=== PATIENT | female | born 1985 | race Caucasian/White ===

== ENCOUNTER → 2019-12-06 | Outpatient (CLI) | payer OTHER | END | disposition home or self-care (01) | LOC: STAR 11:23 | PROVIDERS: ATTEND Obstetrics & Gynecology | DX: Z01.818 Encounter for other preprocedural examination (principal); Z11.59 Encounter for screening for other viral diseases | CPT/HCPCS: 36415; 87635 ==

== ENCOUNTER 2019-12-11 00:47 | Inpatient (IN) | payer OTHER ==
[~2019-12-11] VITALS: Ht 162.6 cm; Wt 74.5 kg
[2019-12-11] MEDS ORDERED: LACTATED RINGERS 1,000 ML IV SCH (07:34)
[2019-12-11 07:47] VITALS: BP 113/66
[2019-12-11] MEDS ORDERED: METOCLOPRAMIDE 5 MG/ML, 2ML IV ONE (08:00)
[2019-12-11] MEDS ORDERED: SODIUM CITRATE/CITRIC ACID 30 ML UDC PO ONE (08:00)
[2019-12-11] MEDS ORDERED: LACTATED RINGERS 1,000 ML IVBOLUS ONE (08:00)
[2019-12-11 08:02] LABS: BASOPHILS # (AUTO) 0.01 x10^3/uL (0-0.1); BASOPHILS % (AUTO) 0 % (0-1); EOSINOPHILS # (AUTO) 0.04 x10^3/uL (0-0.4); EOSINOPHILS % (AUTO) 1 % (1-7); LYMPHOCYTES # (AUTO) 1.12 x10^3/uL (1-3.4); LYMPHOCYTES % (AUTO) 12 % (22-44); MD NO; MEAN CORPUSCULAR HEMOGLOBIN 30.7 pg (27.0-34.8); MEAN CORPUSCULAR HGB CONC 33.6 g/dL (32.4-35.8); MEAN CORPUSCULAR VOLUME 91.3 fL (80-100); MEAN PLATELET VOLUME 8.4 fL (7.4-10.4); MONOCYTES # (AUTO) 0.68 x10^3/uL (0.2-0.8); MONOCYTES % (AUTO) 8 % (2-9); NEUTROPHILS # (AUTO) 7.16 x10^3/uL (1.8-6.8); NEUTROPHILS % (AUTO) 79 % (42-75); PLATELET COUNT 213 x10^3/uL (130-400); RED BLOOD COUNT 3.83 x10^6/uL (3.82-5.3); RED CELL DISTRIBUTION WIDTH 17.7 % (9.6-15.2)
[2019-12-11] MEDS ORDERED: NEWBORN KIT ONE (08:12)
[2019-12-11] MEDS ORDERED: OXYTOCIN 30U/ 0.9% NaCL 500ML 500 ML ONE (08:12)
[2019-12-11] MEDS ORDERED: METOCLOPRAMIDE 5 MG/ML, 2ML ONE (08:12)
[2019-12-11] MEDS ORDERED: morphine SULFATE/PF 0.5 MG/ML, 10ML ONE (08:58)
[2019-12-11] MEDS ORDERED: OXYTOCIN 10 UNITS/ML, 1ML ONE (09:01)
[2019-12-11] MEDS ORDERED: ONDANSETRON 2MG/ML, 2ML ONE (09:01)
[2019-12-11] MEDS ORDERED: DEXAMETHASONE 4 MG/ML, 1ML ONE (09:01)
[2019-12-11] MEDS ORDERED: WATER-INJECTION,STERILE 10 ML IV ONE (09:01)
[2019-12-11] MEDS ORDERED: CEFAZOLIN 1,000 MG ONE (09:01)
[2019-12-11] MEDS ORDERED: PHENYLEPHRINE 10 MG/ML ONE (09:01)
[2019-12-11] MEDS ORDERED: KETOROLAC 30 MG/1 ML ONE (09:01)
[2019-12-11] MEDS ORDERED: SODIUM CHLORIDE 0.9% PF 10ML ONE (09:01)
[2019-12-11] MEDS: LACTATED RINGERS 1,000 ML IV SCH ×4 (09:06→19:06)
[2019-12-11] MEDS ORDERED: MIDAZOLAM 1 MG/ML, 2ML ONE (09:23)
[2019-12-11] MEDS ORDERED: MISOPROSTOL 200 MCG TABLET PR PRN (09:30)
[2019-12-11] MEDS ORDERED: MORPHINE SULFATE 4 MG/ML, 1ML IVPush PRN (09:30)
[2019-12-11] MEDS ORDERED: ACETAMINOPHEN 325 MG TABLET PO PRN ×2 (09:30)
[2019-12-11] MEDS ORDERED: DIPH,PERTUSS(ACELL),TET VAC/PF NC IM-VACC PRN (09:30)
[2019-12-11] MEDS ORDERED: CALCIUM CARBONATE 500 MG TAB.CHEW PO PRN (09:30)
[2019-12-11] MEDS ORDERED: MEASLES,MUMPS&RUBELLA VACC/PF 0.5 ML SQ-VACC PRN (09:30)
[2019-12-11] MEDS ORDERED: RHOGAM FROM BLOOD BANK 1 NOTE EA IM/IV ONE (09:30)
[2019-12-11] MEDS ORDERED: ONDANSETRON 2MG/ML, 2ML IV PRN (09:30)
[2019-12-11] MEDS: KETOROLAC 30 MG/1 ML IV SCH ×3 (09:30→21:08)
[2019-12-11] MEDS: OXYTOCIN 30U/ 0.9% NaCL 500ML 500 ML IV SCH ×2 (10:36→19:06)
[2019-12-11] MEDS ORDERED: OXYcodone 5 MG/5 ML ORAL.SOL UDC ONE (10:50)
[2019-12-11] MEDS ORDERED: OXYcodone 5 MG/5 ML ORAL.SOL UDC PO PRN (11:00)
[2019-12-11 12:00] VITALS: BP 97/60
[2019-12-11] MEDS ORDERED: DIPHENHYDRAMINE 50 MG/ML, 1ML IVPush PRN (13:30)
[2019-12-11] MEDS ORDERED: ONDANSETRON 2MG/ML, 2ML IVPush PRN (13:30)
[2019-12-11] MEDS ORDERED: NALOXONE 0.4 MG/ML, 1ML IVPush PRN (13:30)
[2019-12-11] MEDS ORDERED: morphine SULFATE 10 MG/ML, 1ML IVPush PRN (13:30)
[2019-12-11] MEDS ORDERED: DO NOT GIVE XX SCH (13:30)
[2019-12-11] MEDS ORDERED: KETOROLAC 30 MG/1 ML IVPush PRN (13:30)
[2019-12-11] MEDS: OXYcodone/APAP 5/325MG TABLET PO PRN ×3 (15:03→23:42)
[2019-12-11 16:28] VITALS: BP 103/62
[2019-12-11 17:34] LABS: BASOPHILS % (AUTO) 0 % (0-1); EOSINOPHILS % (AUTO) 0 % (1-7); LYMPHOCYTES # (AUTO) 0.86 x10^3/uL (1-3.4); LYMPHOCYTES % (AUTO) 6 % (22-44); MD SCAN; MEAN CORPUSCULAR HEMOGLOBIN 30.9 pg (27.0-34.8); MEAN CORPUSCULAR HGB CONC 33.8 g/dL (32.4-35.8); MEAN CORPUSCULAR VOLUME 91.5 fL (80-100); MEAN PLATELET VOLUME 8.7 fL (7.4-10.4); MONOCYTES # (AUTO) 0.38 x10^3/uL (0.2-0.8); MONOCYTES % (AUTO) 3 % (2-9); NEUTROPHILS # (AUTO) 13.66 x10^3/uL (1.8-6.8); NEUTROPHILS % (AUTO) 92 % (42-75); PLATELET COUNT 194 x10^3/uL (130-400); RED BLOOD COUNT 3.49 x10^6/uL (3.82-5.3); RED CELL DISTRIBUTION WIDTH 17.6 % (9.6-15.2)
[2019-12-11 19:15] VITALS: BP 104/66
[2019-12-11] MEDS: DOCUSATE 100 MG CAPSULE PO PRN (19:24)
[2019-12-12] VITALS: BP 111/70
[2019-12-12] MEDS: LACTATED RINGERS 1,000 ML IV SCH ×5 (01:06→17:06)
[2019-12-12] MEDS: KETOROLAC 30 MG/1 ML IV SCH ×3 (03:18→15:30)
[2019-12-12] MEDS: OXYcodone/APAP 5/325MG TABLET PO PRN ×6 (03:27→23:57)
[2019-12-12 03:30] VITALS: BP 109/68
[2019-12-12] MEDS: OXYTOCIN 30U/ 0.9% NaCL 500ML 500 ML IV SCH ×2 (05:06→15:06)
[2019-12-12 07:30] VITALS: BP 99/66
[2019-12-12] MEDS: DOCUSATE 100 MG CAPSULE PO PRN (07:44)
[2019-12-12] MEDS: PRENATAL VIT/IRON/FA 1 EACH TABLET PO SCH (08:48)
[2019-12-12] MEDS: IBUPROFEN 600 MG TABLET PO PRN ×2 (15:41→21:40)
[2019-12-12] MEDS: SIMETHICONE 80 MG CHEW TAB PO PRN (19:55)
[2019-12-12 20:00] VITALS: BP 99/64
[2019-12-13] MEDS: LACTATED RINGERS 1,000 ML IV SCH ×2 (01:06)
[2019-12-13] MEDS: OXYTOCIN 30U/ 0.9% NaCL 500ML 500 ML IV SCH (01:06)
[2019-12-13] MEDS: SIMETHICONE 80 MG CHEW TAB PO PRN ×4 (01:55→22:29)
[2019-12-13] MEDS: IBUPROFEN 600 MG TABLET PO PRN ×4 (03:48→22:29)
[2019-12-13] MEDS: OXYcodone/APAP 5/325MG TABLET PO PRN ×3 (03:49→20:14)
[2019-12-13] MEDS: DOCUSATE 100 MG CAPSULE PO PRN (08:03)
[2019-12-13] MEDS: PRENATAL VIT/IRON/FA 1 EACH TABLET PO SCH (08:03)
[2019-12-13 08:06] VITALS: BP 105/67
[2019-12-13] MEDS ORDERED: IBUPROFEN 600 MG TABLET PO PRN (09:30)
[2019-12-13] MEDS: OXYcodone IR 5MG TABLET PO PRN ×2 (12:09→16:08)
[2019-12-13] MEDS: ACETAMINOPHEN 325 MG TABLET PO SCH ×2 (16:07→22:00)
[2019-12-13] MEDS: FERROUS SULFATE 325 MG TABLET PO SCH (16:14)
[2019-12-13 18:55] LABS: MICROSCOPIC INDICATED
[2019-12-13 20:30] VITALS: BP 124/76
[2019-12-13 22:56] LABS: MICROSCOPIC NOT IND
[2019-12-14] MEDS ORDERED: PHENAZOPYRIDINE 100 MG TABLET PO PRN (00:30)
[2019-12-14] MEDS: OXYcodone IR 5MG TABLET PO PRN (01:22)
[2019-12-14] MEDS: ACETAMINOPHEN 325 MG TABLET PO SCH ×2 (04:00→10:00)
[2019-12-14] MEDS: SIMETHICONE 80 MG CHEW TAB PO PRN ×2 (05:19→07:39)
[2019-12-14] MEDS: IBUPROFEN 600 MG TABLET PO PRN ×2 (05:19→11:30)
[2019-12-14] MEDS: PRENATAL VIT/IRON/FA 1 EACH TABLET PO SCH (07:39)
[2019-12-14] MEDS: FERROUS SULFATE 325 MG TABLET PO SCH (07:39)
[2019-12-14] MEDS: DOCUSATE 100 MG CAPSULE PO PRN (07:40)
[2019-12-14 07:45] VITALS: BP 120/81
[2019-12-14] MEDS: OXYcodone/APAP 5/325MG TABLET PO PRN ×2 (07:45→11:31)
[2019-12-14] MEDS ORDERED: OXYC-302 PO (10:19)
[2019-12-14] MEDS ORDERED: IBUP200T49 PO (10:25)
[2019-12-14] MEDS ORDERED: DOCU-131 PO (10:26)
== END 2019-12-14 13:45 | disposition home or self-care (01) | DRG 787 ==
LOC: LDIP 07:31 → 2NW 11:46
PROVIDERS: ADMIT Obstetrics & Gynecology; ATTEND Obstetrics & Gynecology
PROC: 10D00Z1 Extraction of Products of Conception, Low, Open Approach (ICD-10-PCS; principal; 2019-12-11)
DX: O69.81X0 Labor and delivery complicated by cord around neck, without compression, not applicable or unspecified (principal); D62 Acute posthemorrhagic anemia; O34.211 Maternal care for low transverse scar from previous cesarean delivery; Z3A.39 39 weeks gestation of pregnancy; Z37.0 Single live birth; O99.02 Anemia complicating childbirth; Z88.1 Allergy status to other antibiotic agents
CPT/HCPCS: 36415; 81001; 81003; 85025; 86592; 86850; 86900; G0378; J0690; J1100; J1885; J2250; J2274; J2405; J2270; J2370; J2590; J2765; J7120